=== PATIENT | male | born 1960 | race Caucasian/White ===

== ENCOUNTER → 2016-03-26 | Outpatient (CLI) | payer OTHER | END | disposition home or self-care (01) | LOC: C.LABMFLN 13:31 | PROVIDERS: ATTEND Family Medicine | DX: R30.0 Dysuria (principal) ==

== ENCOUNTER → 2016-04-30 | Outpatient (CLI) | payer OTHER | END | disposition home or self-care (01) | LOC: C.LABMFLN 09:39 | PROVIDERS: ATTEND Family Medicine | DX: N41.9 Inflammatory disease of prostate, unspecified (principal) ==

== ENCOUNTER → 2016-08-24 | Outpatient (CLI) | payer OTHER ==
[2016-08-24 18:19] LABS: BASO % 0.3 %; BASO ABS # 0.02 K/uL (0-0.2); COMPLETE YES; EOS % 3.1 %; HEMATOCRIT 47.6 % (42-52); IG% 0.3 %; LYMPH ABS # 2.56 K/uL (1.2-3.4); MEAN CELL VOLUME 92.6 fL (80-100); MEAN CORPUSCULAR HEMOGLOBIN 31.3 pg (25-34); MEAN CORPUSCULAR HGB CONC 33.8 g/dl (32-36); MEAN PLATELET VOLUME 9.8 fL (7.4-10.4); NEUT % 51.3 %; PLATELET COUNT 172 K/uL (130-400); RED BLOOD COUNT 5.14 M/uL (4.7-6.1); WHITE BLOOD COUNT 7.52 K/uL (4.8-10.8)
[2016-08-24 18:28] LABS: URINE APPEARANCE TURBID (CLEAR); URINE BILIRUBIN NEG (NEG); URINE COLOR DK YELLOW; URINE EPITHELIAL CELL AUTO 0-5 /lpf (0-5); URINE NITRITE NEG (NEG); URINE PH 5.5 (4.5-7.5); URINE SPECIFIC GRAVITY 1.031 (1.000-1.030); UROBILINOGEN NEG (NEG)
[2016-08-24 18:29] LABS: MANUAL MICROSCOPIC REQUIRED? NO; REVIEW REQ? NO
[2016-08-24 18:29] LABS: AMYLASE 31 U/L (25-115); BLOOD UREA NITROGEN 19 mg/dl (7-18); BUN/CREATININE RATIO 16.9 (10-20); CALCIUM 9.3 mg/dl (8.5-10.1); CARBON DIOXIDE 26 mmol/L (21-32); CHLORIDE 109 mmol/L (98-107); GLUCOSE 84 mg/dl (70-99); POTASSIUM 3.8 mmol/L (3.5-5.1); SODIUM 141 mmol/L (136-145)
[2016-08-24 18:32] LABS: ALB/GLOB RATIO 1.5 (0.9-2); ALKALINE PHOSPHATASE 92 U/L (45-117); ALT/SGPT 64 U/L (12-78); AST/SGOT 36 U/L (15-37)
== END | disposition home or self-care (01) ==
LOC: C.LABMFLN 16:59
PROVIDERS: ATTEND Family Medicine
DX: R10.11 Right upper quadrant pain (principal)

== ENCOUNTER → 2017-02-01 | Outpatient (CLI) | payer OTHER ==
[2017-02-01 18:27] LABS: BASO % 0.1 %; BASO ABS # 0.01 K/uL (0-0.2); COMPLETE YES; EOS % 1.1 %; HEMATOCRIT 49.3 % (42-52); IG% 0.3 %; LYMPH % 25.2 %; LYMPH ABS # 2.71 K/uL (1.2-3.4); MEAN CELL VOLUME 94.4 fL (80-100); MEAN CORPUSCULAR HGB CONC 34.9 g/dl (32-36); MEAN PLATELET VOLUME 10.3 fL (7.4-10.4); MONO % 8.4 %; NEUT % 64.9 %; PLATELET COUNT 201 K/uL (130-400); RED BLOOD COUNT 5.22 M/uL (4.7-6.1); WHITE BLOOD COUNT 10.77 K/uL (4.8-10.8)
[2017-02-01 18:36] LABS: ALT/SGPT 46 U/L (12-78); AMYLASE 65 U/L (25-115); AST/SGOT 22 U/L (15-37); BLOOD UREA NITROGEN 17 mg/dl (7-18); BUN/CREATININE RATIO 14.9 (10-20); CALCIUM 8.7 mg/dl (8.5-10.1); CARBON DIOXIDE 30 mmol/L (21-32); CHLORIDE 106 mmol/L (98-107); CREATININE 1.11 mg/dl (0.60-1.40); GLUCOSE 90 mg/dl (70-99); POTASSIUM 3.7 mmol/L (3.5-5.1); SODIUM 138 mmol/L (136-145)
[2017-02-01 18:39] LABS: ALB/GLOB RATIO 1.2 (0.9-2); ALKALINE PHOSPHATASE 81 U/L (45-117)
[2017-02-01 18:50] LABS: URINE APPEARANCE TURBID (CLEAR); URINE BILIRUBIN NEG (NEG); URINE COLOR DK YELLOW; URINE NITRITE NEG (NEG); URINE SPECIFIC GRAVITY 1.033 (1.000-1.030); UROBILINOGEN NEG (NEG); ZZUR CULT IF INDIC CLEAN CATCH NO
[2017-02-01 18:53] LABS: MANUAL MICROSCOPIC REQUIRED? NO; REVIEW REQ? NO
== END | disposition home or self-care (01) ==
LOC: C.LABMFLN 14:20
PROVIDERS: ATTEND Family Medicine
DX: R10.13 Epigastric pain (principal); R10.11 Right upper quadrant pain

== ENCOUNTER 2018-09-08 08:43 | Inpatient (IN) ==
--- NOTE | 2018-09-01 08:33 | Anesthesiology Consultation ---
Date of Service September 01, 2018 Assessment & Plan (1) Encounter for pre-operative examination: Chart Review Chart Review: Acceptable Risk for Surgery and Patient seen in Pre Admission Testing Teaching & Discussion Instructed NPO after midnight before surgery, except medications with 15 cc of water. Medication instructions provided according to the PAT guidelines. History Surgery Operation Date: 09/08/18 10:25 Proposed Procedures p L5-S1 Decompression and Fusion with Spinal Cord Monitoring - Rosales Kaur, Height/Weight Height: 5 ft 10 in Weight: 110.1 kg Allergies Allergy/AdvReac Type Severity Reaction Status Date / Time azithromycin Allergy Unknown Unknown Verified 08/30/18 10:49 levofloxacin AdvReac Unknown Unknown Verified 08/30/18 10:49 Medications Home Medications Medication Instructions Recorded Confirmed Last Taken albuterol sulfate HFA 90 2 puffs INHALATION Q4H PRN #18 gm 08/29/18 08/30/18 Unknown mcg/actuation aerosol inhaler cetirizine 10 mg tablet 10 mg PO HS #90 tab 08/29/18 08/30/18 Unknown lovastatin 20 mg tablet 20 mg PO HS #90 tab 08/29/18 08/30/18 Unknown fluticasone propionate 2 sprays INTRANASAL DAILY PRN 08/30/18 08/30/18 Unknown ibuprofen [Advil] 400 - 600 mg PO QID PRN 08/30/18 08/30/18 Unknown zolpidem 5 mg PO HS PRN 08/30/18 08/30/18 Unknown Past Medical History Medical History Allergic rhinitis Alopecia areata BPPV (benign paroxysmal positional vertigo) HX-COUPLE YRS AGO Cervicalgia Chronic back pain Chronic sinusitis Hypercholesterolemia Insomnia Internal hemorrhoids Lumbar radiculopathy Mild intermittent asthma Using albuterol seasonally, rarely, exacerbated by allergens and heat. Paroxysmal supraventricular tachycardia 10 YRS AGO. S/P ABLATION, no longer followed by cardiology. Tobacco use GERD (gastroesophageal reflux disease) HX Exercise / Class Metabolic Activity II 4-5 Yardwork/Stairs/Walk up hill (Denies CP or SOB with stairs) Past Surgical History Surgical History Encounter for screening colonoscopy History of decompression of median nerve R/L CTR History of esophagogastroduodenoscopy Past Anesthesia History No Hx of Anesthesia Complications and No Family Hx of Anesthesia Complications History of PONV No Hx of PONV and No Hx of Motion Sickness Social History Smoking Status: Light tobacco smoker tobacco type: cigars Smoking cigarettes per day: OCC CIGARS ON WEEKENDS Do You Dip or Chew Tobacco: No Hx Alcohol Use: Yes Alcohol type: beer and wine alcohol intake frequency: a few times a week Hx Substance Use: No Review of Systems Pt denies any recent chest pain, shortness of breath, palpitations, cough, fever or URI. Physical Exam Vital Signs BP: 121/83 P: 57bpm SPO2: 97% RA T: 97.8 F R: 12 ENMT Mouth: + dental restorations (several crowns); no chipped teeth and no loose teeth Thyromental Distance: < 3.5 Finger Breadths (3) Mallampati Class: I Neck normal visual inspection and + limited neck extension (very mild, some pain with full extension) Respiratory normal respiratory effort Auscultation: lungs clear to auscultation bilaterally Cardiovascular Rate/Rhythm: regular rhythm and + bradycardic Heart Sounds: no murmur Vessels: no carotid bruit Extremities: no edema Testing Laboratory Results 09/01/18 08:45 09/01/18 08:45 PT 10.1 Seconds (9.0-12.0) 09/01/18 08:45 INR 1.0 (0.9-1.1) 09/01/18 08:45 APTT 25.9 Seconds (21.0-31.0) 09/01/18 08:45 Urine Color Yellow 09/01/18 08:45 Urine Appearance Clear (Clear) 09/01/18 08:45 Urine pH 5.5 (4.5-7.5) 09/01/18 08:45 Ur Specific [place] 1.025 (1.000-1.030) 09/01/18 08:45 Urine Protein Negative (Negative) 09/01/18 08:45 Urine Glucose (UA) Negative (Negative) 09/01/18 08:45 Urine Ketones Negative (Negative) 09/01/18 08:45 Urine Nitrite Negative (Negative) 09/01/18 08:45 Ur Leukocyte Esterase Negative (Negative) 09/01/18 08:45 Blood Type A Positive 09/01/18 08:45 Antibody Screen NEGATIVE 09/01/18 08:45 Electrocardiogram Date: 09/01/18 Findings: + SB @ (53) Chest X-Ray Date: 09/01/18 Findings: + NAD
--- NOTE | 2018-09-01 08:39 | PAT Medication Instructions ---
Medication Instructions Date of Service September 01, 2018 Home Medications Medication Instructions Recorded albuterol sulfate HFA 90 2 puffs INHALATION Q4H PRN #18 gm 08/29/18 mcg/actuation aerosol inhaler cetirizine 10 mg tablet 10 mg PO HS #90 tab 08/29/18 lovastatin 20 mg tablet 20 mg PO HS #90 tab 08/29/18 albuterol sulfate HFA 90 mcg/actuation aerosol inhaler 2 puffs INHALATION Q4H PRN cetirizine 10 mg tablet 10 mg PO HS lovastatin 20 mg tablet 20 mg PO HS fluticasone propionate 2 sprays INTRANASAL DAILY PRN ibuprofen [Advil] 400 - 600 mg PO QID PRN zolpidem 5 mg PO HS PRN ASK your surgeon for instructions ibuprofen [Advil] 400 - 600 mg PO QID PRN Take morning of surgery OTHERWISE NOTHING TO EAT OR DRINK AFTER MIDNIGHT: albuterol sulfate HFA 90 mcg/actuation aerosol inhaler 2 puffs INHALATION Q4H PRN (if needed, and bring with you to the hospital) fluticasone propionate 2 sprays INTRANASAL DAILY PRN (if needed) Take evening before surgery albuterol sulfate HFA 90 mcg/actuation aerosol inhaler 2 puffs INHALATION Q4H PRN (if needed) cetirizine 10 mg tablet 10 mg PO HS lovastatin 20 mg tablet 20 mg PO HS fluticasone propionate 2 sprays INTRANASAL DAILY PRN zolpidem 5 mg PO HS PRN Other Notes If you have any questions please call us at [phone] or [phone] or [phone] or [phone]
--- NOTE | 2018-09-01 09:29 | XRay Report ---
XR chest Pre-admission PA/Lat CLINICAL HISTORY: Preoperative evaluation. COMPARISON STUDY: No previous studies for comparison. FINDINGS: Lung volumes are normal. Lungs are clear. There is no pneumothorax or pleural effusion. Car diac size is normal. Mediastinal contours are normal. There is no evidence for pulmonary edema. IMPRESSION: No acute cardiopulmonary findings. Electronically signed by: Dominic Lucero M.D. 09/01/2018 9:28 AM
[2018-09-01 11:20] LABS: Basophils # (auto) 0.02 K/uL (0-0.2); Basophils % (auto) 0.3 %; Eosinophils # (auto) 0.28 K/uL (0-0.5); Eosinophils % (auto) 3.7 %; Hematocrit (blood only) 50.9 % (42-52); Hemoglobin 17.9 g/dL (14.0-18.0); Immature Granulocytes # (auto) 0.01 K/uL (0.00-0.02); Immature Granulocytes % (auto) 0.1 %; Lymphocytes # (auto) 2.37 K/uL (1.2-3.4); Lymphocytes % (auto) 31.6 %; Mean Corpuscular Hgb Conc 35.2 g/dL (32-36); Mean Corpuscular Volume 95.5 fL (80-100); Mean Platelet Volume 10.4 fL (7.4-10.4); Monocytes # (auto) 0.68 K/uL (0.11-0.59); Monocytes % (auto) 9.1 %; Neutrophils # (auto) 4.15 K/uL (1.4-6.5); Neutrophils % (auto) 55.2 %; Platelet Count 189 K/uL (130-400); RDW Coefficient of Variation 13.3 % (11.5-14.5); RDW Standard Deviation 46.4 fL (36.4-46.3); Red Blood Count 5.33 M/uL (4.7-6.1); White Blood Count 7.51 K/uL (4.8-10.8)
[2018-09-01 11:21] LABS: Appearance Urine Clear (Clear); Bilirubin Urine Negative (Negative); Blood Urine Negative (Negative); Color Urine Yellow; Glucose Urine UA Negative (Negative); Ketones Urine Negative (Negative); Leukocyte Esterase Urine Negative (Negative); Nitrite Urine Negative (Negative); Protein Urine Negative (Negative); Specific Gravity Urine 1.025 (1.000-1.030); Urobilinogen Urine Negative (Negative); pH Urine 5.5 (4.5-7.5)
[2018-09-01 11:29] LABS: BUN Creatinine Ratio 14.8 (10-20); Calcium 8.8 mg/dl (8.5-10.1); Creatinine Clr Calc Pharmacy 92.3 ml/min; Est GFR (African American) 85.6; Est GFR (Non-African American) 73.8; Potassium 4.2 mmol/L (3.5-5.1)
[2018-09-01 11:31] LABS: Partial Thromboplastin Time 25.9 Seconds (21.0-31.0); Prothrombin Time 10.1 Seconds (9.0-12.0)
[~2018-09-08 08:43] MED LIST: CEFAZOLIN 2000MG 2,000 MG/15 ML SYR IV SCH; HYDROmorphone INJ 2 MG/ML SYR/VIAL ONE; LACTATED RINGER'S 1,000 ML IV SCH; LIDOCAINE HCL 2% 2 ML VIAL/AMP(20MG/ML) INFIL ONE; MIDAZOLAM HCL 1 MG/ML 2ML VIAL ONE; PROPOFOL IV EMULSION 10 MG/ML 20 ML VIAL IV ONE; ROCURONIUM BROMIDE 10 MG/ML 5 ML VIAL ONE; fentaNYL citrate 100 MCG/2 ML VIAL ONE
[2018-09-08] MEDS ORDERED: MoRPHine SULFATE 10 MG/ML CARP/VIAL IV PRN (09:42)
[2018-09-08] MEDS ORDERED: ATROPINE SULFATE 0.1 MG/ML 10ML SYR IV PRN (09:42)
[2018-09-08] MEDS ORDERED: ONDANSETRON INJ 2 MG/ML 2 ML VIAL IV PRN ×2 (09:42→13:52)
[2018-09-08] MEDS ORDERED: ePHEDrine sulfate 50 MG/ML AMP IV PRN (09:42)
--- NOTE | 2018-09-08 10:08 | History & Physical Bridge Note ---
Date of Service September 08, 2018 History & Physical Bridge Note I have examined the patient, reviewed the History & Physical and in the interval since the performance of the History & Physical I have noted the following changes of clinical significance: no changes noted
--- NOTE | 2018-09-08 10:09 | History & Physical Report ---
Date of Service September 08, 2018 Assessment & Plan (1) Spinal stenosis, lumbar region with neurogenic claudication: L5-S1 decompression and fusion Present on Admission?: Yes History of Present Illness Chief Complaint: Back and leg pain Primary Care Provider: Davis Chaparro MD This is a 58-year-old male who presents with chronic persistent back and leg pain after failing extensive course of nonoperative care is here for surgical intervention. Allergies Allergy/AdvReac Type Severity Reaction Status Date / Time azithromycin Allergy Unknown Unknown Verified 09/08/18 09:13 levofloxacin AdvReac Unknown Unknown Verified 09/08/18 09:13 Home Medications Home Medications Medication Instructions Recorded Confirmed Type albuterol sulfate HFA 90 2 puffs INHALATION Q4H PRN #18 gm 08/29/18 09/08/18 Rx mcg/actuation aerosol inhaler cetirizine 10 mg tablet 10 mg PO HS #90 tab 08/29/18 09/08/18 Rx lovastatin 20 mg tablet 20 mg PO HS #90 tab 08/29/18 09/08/18 Rx fluticasone propionate 2 sprays INTRANASAL DAILY PRN 08/30/18 09/08/18 History ibuprofen [Advil] 400 - 600 mg PO QID PRN 08/30/18 09/08/18 History zolpidem 5 mg PO HS PRN 08/30/18 09/08/18 History Past Med/Surg History Medical History Allergic rhinitis Alopecia areata BPPV (benign paroxysmal positional vertigo) HX-COUPLE YRS AGO Cervicalgia Chronic back pain Chronic sinusitis Hypercholesterolemia Insomnia Internal hemorrhoids Lumbar radiculopathy Mild intermittent asthma Using albuterol seasonally, rarely, exacerbated by allergens and heat. Paroxysmal supraventricular tachycardia 10 YRS AGO. S/P ABLATION, no longer followed by cardiology. Tobacco use GERD (gastroesophageal reflux disease) HX Social History Preferred Language: Czech Communication Ability: Effective Airline Reservation Agent Required: No Beliefs That Will Affect Care: None Current Living Situation: Spouse and Family Other Information That Helps Us Care for You: No Feels Safe at Home: Yes Safety Concerns: Feels Safe At This Time Smoking Status: Light tobacco smoker Tobacco Type: cigars Cigarettes Per Day: OCC CIGARS ON WEEKENDS Do You Dip or Chew Tobacco: No Second Hand Exposure: No Hx Alcohol Use: Yes Alcohol type: beer and wine Hx Substance Use: No Physical Exam Physical Exam: Patient is alert and oriented neurologically intact. Results & Data Vital Signs (Past 12 Hours) Vital Signs Temp Pulse Resp BP Pulse Ox 09/08/18 09:18 36.9 C 73 18 121/89 96
[2018-09-08] MEDS ORDERED: BUPIVACAINE/EPINEPHRINE 0.5% MPF 1:200,000 30 ML VIAL ONE (10:12)
[2018-09-08] MEDS ORDERED: HYDROmorphone INJ 2 MG/ML SYR/VIAL ONE ×2 (10:12→11:33)
[2018-09-08] MEDS ORDERED: BACITRACIN INJ 50,000 UNIT VIAL ONE (10:12)
[2018-09-08] MEDS ORDERED: fentaNYL citrate 100 MCG/2 ML VIAL ONE ×4 (10:37→11:42)
[2018-09-08] MEDS ORDERED: FLOSEAL HEMOSTATIC MATRIX 10ML TOP ONE (11:18)
[2018-09-08] MEDS ORDERED: PROPOFOL IV EMULSION 10 MG/ML 20 ML VIAL IV ONE (11:43)
[2018-09-08] MEDS ORDERED: GLYCOPYRROLATE 0.2 MG/ML VIAL ONE (11:43)
[2018-09-08] MEDS ORDERED: PHENYLEPHRINE 100MCG/ML 5ML SYR ONE (11:43)
[2018-09-08] MEDS ORDERED: NEOSTIGMINE METHYLSULFATE 1 MG/ML 10ML VIAL ONE (11:43)
[2018-09-08] MEDS ORDERED: ESMOLOL HCL INJ 10 MG/ML 10ML VIAL IV ONE (11:43)
[2018-09-08] MEDS ORDERED: ONDANSETRON INJ 2 MG/ML 2 ML VIAL ONE (11:43)
[2018-09-08] MEDS ORDERED: ePHEDrine sulfate 50 MG/ML SYR ONE (11:43)
--- NOTE | 2018-09-08 12:17 | Fluoroscopy Report ---
FL lumbar spine 2-3V CLINICAL HISTORY: L5-S1 DECOMP/FUSIONpostoperative COMPARISON STUDY: None FLUOROSCOPY TIME: 25 seconds NUMBER OF FLUOROSCOPIC IMAGES: 2 FINDINGS: Findings consistent with a posterior laminectomy and fusion at L5-S1. There is a grade 1 an terolisthesis of L5 on S1. There is a disc spacer present at the L5-S1 disc level. IMPRESSION: Image intensifier utilization intraoperatively for an L5-S1 laminectomy and fusion. The above report was generated using voice recognition software. It may contain grammatical, syntax or spelling errors. Electronically signed by: Cezar Avalos M.D. 09/08/2018 12:16 PM
--- NOTE | 2018-09-08 12:26 | Operative Report ---
Post Operative Report Pre & Post Diagnosis Operation Date: 09/08/18 10:25 Pre-Op Diagnosis: Spinal stenosis, lumbar region with neurogenic claudication Spondylolisthesis L5-S1 Post-Op Diagnosis: Same Procedure Operation Date: 09/08/18 10:25 Actual Procedures #1 lumbar decompression bilateral medial facetectomies foraminotomies L4-5 L5-S1 per #2 posterior spinal fusion L5-S1 per #3 placement posterior instrumentation L5-S1 per #4 interbody fusion L5-S1 per #5 placement of titanium 11 x 26 mm cage L5-S1. #6 placement of local autograft in the posterior lateral gutters per #7 placement infuse collagen sponge, master graft in the posterior lateral gutters and ostial amp and interbody space. Surgeon Rosales Kaur, DO Auto Transmission Technician None Estimated Blood Loss 275 Findings See Below Patient is 5 foot 10 inches tall weighing over 108 kg with a BMI in excess of 34. Patient's body habitus added significant technical difficulty throughout the procedure adding 50% increase in operative time. He did require her deepest retractors and longest instruments to perform the procedure. Specimens None Indications This is a 58-year-old male presents with above-mentioned diagnosis after failing extensive course of nonoperative care like to undergo the above-mentioned procedure. Description of Procedure Patient was met with identified and informed consent obtained. He was then taken to the operative suite underwent intubation placed in a prone position on the Logan table on top of the Jim frame. All bony prominences well-padded eyes inspected to ensure no external pressure placed upon the peer at this point the lumbar spine was prepped and draped in the normal sterile fashion. Sharp dissection with the assistance of Bovie cautery was performed down to and exposing the lamina and transverse process of L5 and sacral ala bilaterally. Obvious pars defect was appreciated bilaterally. A complete laminectomy of L5 partial laminectomy of L4 was performed. This included bilateral medial facetectomies foraminotomies to address all neural encroachment. Pedicle screws were then placed in L5 and S1 levels bilaterally with assistance of fluoroscopy and the appropriate size janie placed. By way of a transforaminal approach on the left complete discectomy was performed in plate graded to subcortical mean bone and 11 x 26 mm titanium cage filled with ostium bone graft tapped in position. Rods were then locked in final position bilaterally. The transverse processes of L5 and sacral ala bur to subcortical bleeding bone. Infuse collagen sponge master graft local autograft was then placed in the posterior lateral gutters. 15 round FLACO drain inserted. Incision was then closed with 1 Vicryl in the fascia 2-0 Vicryl subcutaneously and 4-0 Monocryl for final skin closure. Lastly Steri-Strips sterile dressing placed. Patient will continue PACU stable condition. Please note spinal cord monitoring was utilized throughout the procedure no changes noted. I attest to the content of the Intraoperative Record and any orders documented therein. Any exceptions are noted below.
[2018-09-08] MEDS: fentaNYL citrate 100 MCG/2 ML VIAL IV PRN ×2 (12:47→12:52)
--- NOTE | 2018-09-08 13:09 | Anesthesiology Progress Note ---
Date of Service September 08, 2018 Anesthesia Post Procedure Vital Signs Vital Signs: Temp Pulse Pulse Resp BP Pulse Ox 09/08/18 13:05 76 17 127/86 98 09/08/18 12:55 81 16 120/88 98 09/08/18 12:45 81 19 146/94 H 98 09/08/18 12:35 97.3 F L 73 10 L 142/93 H 92 09/08/18 09:18 98.4 F 73 18 121/89 96 Pain Intensity Medial Back: Pain Intensity: 2 Transfer of Care Handoff Completed per policy Notes Mental Status: alert / awake / arousable and participated in evaluation Patient Amnestic to Procedure: Yes Nausea / Vomiting: adequately controlled Pain: adequately controlled Airway Patency, RR, SpO2: stable & adequate BP & HR: stable & adequate Hydration State: stable & adequate Anesthetic Complications: no major complications apparent and Pt Satisfied with anesthetic care
[2018-09-08] MEDS ORDERED: LARYING-O-JET KIT (LTA) ONE (13:22)
[2018-09-08] MEDS ORDERED: ACETAMINOPHEN 500 MG TAB PO PRN (13:52)
[2018-09-08] MEDS ORDERED: ONDANSETRON 4 MG TAB PO PRN (13:52)
[2018-09-08] MEDS ORDERED: ALUMINUM/MAGNESIUM SUSP 30 ML UDC PO PRN (13:52)
[2018-09-08] MEDS ORDERED: BISACODYL 10 MG SUPP PR PRN (13:52)
[2018-09-08] MEDS ORDERED: DO NOT ADMINISTER FLU VACCINE PRN (13:52)
[2018-09-08] MEDS ORDERED: MAGNESIUM HYDROXIDE SUSP 30 ML UDC PO PRN (13:52)
[2018-09-08] MEDS ORDERED: ZOLPIDEM TARTRATE 10 MG TAB PO PRN (13:52)
[2018-09-08] MEDS ORDERED: SOD PHOSPHATE/SOD BIPHOSPHATE ENEMA 132 ML BTL PR PRN (13:52)
[2018-09-08] MEDS ORDERED: PROMETHAZINE HCL 12.5 MG in SODIUM CHLORIDE 0.9% 50 ML IV PRN (13:52)
[2018-09-08] MEDS ORDERED: FAMOTIDINE 20 MG TAB PO PRN (13:52)
[2018-09-08] MEDS ORDERED: DO NOT ADMINISTER PNEUMOCOCCAL VACCINE PRN (13:52)
[2018-09-08] MEDS ORDERED: LORazepam 0.5 MG/1 ML VIAL IV PRN (13:52)
[2018-09-08] MEDS ORDERED: FLUTICASONE PROPIONATE NA SPR 16 GM BTL PRN (13:52)
[2018-09-08] MEDS ORDERED: HYDROmorphone INJ 0.5 MG/0.5 ML SYR IV PRN (13:52)
[2018-09-08] MEDS ORDERED: ALBUTEROL HFA 8 GM INHALER INH PRN (13:52)
[2018-09-08] MEDS ORDERED: LORazepam 0.5 MG TAB PO PRN (13:52)
[2018-09-08] MEDS ORDERED: ACETAMINOPHEN 1,000 MG/100 ML VIAL IV PRN (13:52)
[2018-09-08] MEDS ORDERED: METOCLOPRAMIDE HCL INJ 5 MG/ML 2 ML VIAL IV PRN (13:52)
[2018-09-08] MEDS: LACTATED RINGER'S 1,000 ML IV SCH ×2 (14:42→18:26)
[2018-09-08] MEDS: KETOROLAC 30 MG/ML VIAL IV SCH ×2 (14:43→21:00)
[2018-09-08] MEDS: OXYCODONE HCL IR 5 MG TAB (IMMEDIATE RELEASE) PO PRN ×2 (14:45→18:46)
[2018-09-08] MEDS: CEFAZOLIN 2000MG 2,000 MG/15 ML SYR IV SCH (18:30)
[2018-09-08] MEDS: DOCUSATE SODIUM/SENNA 50/8.6MG TAB PO SCH (21:01)
[2018-09-08] MEDS: LOVASTATIN 20 MG TAB PO SCH (21:01)
[2018-09-08] MEDS: CETIRIZINE HCL 10 MG TABLET PO SCH ×2 (21:01→21:05)
[2018-09-09] MEDS: KETOROLAC 30 MG/ML VIAL IV SCH ×2 (01:21→07:58)
[2018-09-09] MEDS: CEFAZOLIN 2000MG 2,000 MG/15 ML SYR IV SCH (01:27)
[2018-09-09] MEDS: POLYETHYLENE (MIRALAX) 17 GM PACK PO SCH ×4 (05:45→23:26)
[2018-09-09 07:08] LABS: Basophils # (auto) 0.01 K/uL (0-0.2); Hematocrit (blood only) 42.8 % (42-52); Hemoglobin 14.8 g/dL (14.0-18.0); Immature Granulocytes # (auto) 0.08 K/uL (0.00-0.02); Immature Granulocytes % (auto) 0.4 %; Lymphocytes # (auto) 1.44 K/uL (1.2-3.4); Lymphocytes % (auto) 6.9 %; Mean Corpuscular Hgb Conc 34.6 g/dL (32-36); Mean Corpuscular Volume 95.1 fL (80-100); Mean Platelet Volume 10.2 fL (7.4-10.4); Monocytes # (auto) 1.05 K/uL (0.11-0.59); Neutrophils # (auto) 18.33 K/uL (1.4-6.5); Neutrophils % (auto) 87.7 %; Platelet Count 154 K/uL (130-400); RDW Coefficient of Variation 13.5 % (11.5-14.5); RDW Standard Deviation 46.9 fL (36.4-46.3); White Blood Count 20.91 K/uL (4.8-10.8)
[2018-09-09 07:44] LABS: BUN Creatinine Ratio 16.3 (10-20); Calcium 8.1 mg/dl (8.5-10.1); Creatinine Clr Calc Pharmacy 80.8 ml/min; Est GFR (African American) 73.4; Est GFR (Non-African American) 63.3; Potassium 4.2 mmol/L (3.5-5.1)
[2018-09-09] MEDS: OXYCODONE HCL IR 5 MG TAB (IMMEDIATE RELEASE) PO PRN ×3 (08:40→21:13)
--- NOTE | 2018-09-09 09:58 | Orthopedic Progress Note ---
Date of Service September 09, 2018 Assessment & Plan (1) Spinal stenosis, lumbar region with neurogenic claudication: This time will initiate physical therapy monitor his FLACO output anticipate discharge home Tuesday or Tuesday. Present on Admission?: Yes Subjective Patient's back pain is controlled leg symptoms improved. Physical Exam Physical Exam: Patient is good strength testing appears comfortable. Results & Data Vital Signs (Past 12 Hours) Vital Signs Temp Pulse Resp BP Pulse Ox 09/09/18 07:19 36.8 C 69 20 95/58 L 94 09/09/18 03:43 37.0 C 67 18 105/65 92 09/08/18 23:04 36.9 C 68 17 116/74 91
[2018-09-09] MEDS: TRAMADOL HCL 50 MG TABLET PO PRN ×2 (16:06→23:58)
[2018-09-09] MEDS: LOVASTATIN 20 MG TAB PO SCH (21:06)
[2018-09-09] MEDS: DOCUSATE SODIUM/SENNA 50/8.6MG TAB PO SCH (21:07)
[2018-09-09] MEDS: CETIRIZINE HCL 10 MG TABLET PO SCH (21:07)
[2018-09-10] MEDS: POLYETHYLENE (MIRALAX) 17 GM PACK PO SCH ×2 (05:47→13:52)
[2018-09-10] MEDS: TRAMADOL HCL 50 MG TABLET PO PRN (06:17)
--- NOTE | 2018-09-10 08:33 | Orthopedic Progress Note ---
Date of Service September 10, 2018 Assessment & Plan (1) Spinal stenosis, lumbar region with neurogenic claudication: Overall patient is doing well. He would like to go home today. We will DC FLACO drain prior to discharge. Teds are DVT prophylaxis upon discharge. All questions have been reviewed in detail. Supervising Physician Co-Signing Physician Notes Dr. Rosales Kaur Subjective Patient is postoperative day 2 lumbar decompression fusion. Is doing quite well. Has some numbness in his left foot but has resolved left lower extremity pain. He is ambling over 500 feet after yesterday in physical therapy. Back pain is controlled. He is passing flatus. FLACO drain output last shift was 10 cc. Review of Systems Review of Systems: All systems reviewed & are unremarkable except as noted in HPI & below Physical Exam Physical Exam: He is resting in bed. Alert and oriented x3. No obvious distress. Lower extreme is are neurovascular intact. Calf soft nontender bilateral extremities. Strength is intact bilateral lower extremities. Lumbar dressing is clean dry and intact. Results & Data Vital Signs (Past 12 Hours) Vital Signs Temp Pulse Resp BP BP Pulse Ox 09/10/18 06:25 36.9 C 69 18 116/72 93 09/09/18 23:27 36.8 C 65 18 117/74 93
--- NOTE | 2018-09-10 08:36 | Discharge Summary ---
Date of Service September 10, 2018 Admission HPI Per Admitting Provider This is a 58-year-old male who presents with chronic persistent back and leg pain after failing extensive course of nonoperative care is here for surgical intervention. Admission Exam (Per Admitting) Constitutional WD/WN, vitals as above Eyes normal visual gar by confrontation ENMT external ear and nose normal, oropharynx normal Neck normal visual inspection Respiratory normal respiratory effort Cardiovascular RRR, no murmur, no edema Gastrointestinal (Abdomen) Inspection/Auscultation: abdomen normal to inspection Musculoskeletal no cyanosis or clubbing, extremities motor strength 5/5 Skin no rashes, warm and dry Neurologic patellar DTR's 2+ bilat, sensation intact normal touch/pain/proprioception and CN's II-XI intact bilaterally Psychiatric A+Ox3, euthymic affect Discharge Data Consultations 09/08/18 13:52 Consult Case Management - Discharge Planning Routine Procedures Performed Operation Date: 09/08/18 10:25 Actual Procedures p L5-S1 Decompression and Fusion with Spinal Cord Monitoring, Application of Bone Morphogenetic Protein and Allograft, Placement of Interbody at L5-S1(Not Applicable) - Rosales Kaur, Hospital Course (1) Spinal stenosis, lumbar region with neurogenic claudication: Overall patient is doing well. He would like to go home today. We will DC FLACO drain prior to discharge. Teds are DVT prophylaxis upon discharge. All questions have been reviewed in detail. Patient had an uncomplicated hospital course. Pain is greatly improved. Passing flatus. Making great progress in physical therapy and ambulating in the hallways. He is discharged home on postoperative day 2 Discharge Instructions ACTIVITY RECOMMENDATIONS: SELF CARE INSTRUCTIONS AFTER THORACIC/LUMBAR FUSIONS 1. You may walk to your tolerance. It is good exercise for your legs and back. Expect some back and intermittent leg aches and pains. 2. You may perform "counter-top" level activities (make a sandwich, los with a project, etc.). 3. No bending or lifting of more than 10 pounds or back twisting of any nature (roll like a log when turning in bed). 4. You may ride in a car for 20-30 minutes at a time. No driving until after your first visit with your doctor. 5. Frequent changes of position and restricting sitting to 30 minutes at a time will help limit the amount of back spasms and stiffness you may experience. 6. You may discontinue the use of ambulatory aids (cane, crutches, etc.) once your strength and confidence allow. 7. You may heavy line technician the shower and let water strike your incision when you arrive home at least once daily. Do not take a tub bath, sit in a hot tub or go into a swimming pool until after your first recheck in the office. SPECIAL CARE INSTRUCTIONS: VERY IMPORTANT TO READ AND REVIEW A. Your surgical incision has been closed with a cosmetic suture under the skin that will dissolve in about 6 weeks. In 14 days, you can use a pair of clean scissors and cut the suture that is left outside of the skin at the ends of your incision. 1. The small skin tapes can be removed 7 days after surgery if they have not fallen off by that point. 2. You may keep the wound open to air as much as possible to promote healing after post-op day number 5 unless told otherwise by your doctor. 3. If you think the wound looks like it is becoming infected (redness or worsening drainage) and/or you are experiencing fever, chill or worsening back pain and muscle spasms, contact the office so that we may evaluate you as soon as possible. B. Complications are uncommon, but please contact us if you have any signs or symptoms of: 1. wound infection (fever higher than 102.5 degrees F, redness, separation of wound, drainage, or increasing pain from the incision) 2. blood clots in legs (pain, swelling, redness and warmth in legs) 3. urinary tract infection (fever higher than 102.5 degrees F, burning upon urination or increased frequency of urination) 4. nerve problems (inability to walk on your toes or heels, numbness, loss of bowel or bladder control) 5. any other symptoms that concern you C. Please call the office at if you have any concerns or questions about your operation or recovery. D. No smoking! Smoking drastically decreases the chance of a solid fusion. E. Do not take any anti-inflammatory medications (Indocin, Advil, Motrin, Aspirin, Naprosyn, etc.) as these may inhibit the chance of a solid fusion. Tylenol is okay to take for pain. MANAGING PAIN AFTER SPINAL SURGERY 1. Narcotic medication is intended for short-term use and will be provided for surgical pain. Surgical pain usually lasts for a period of 4-6 weeks. Narcotic medication includes Percocet, Vicodin, Darvocet, Tylenol #3 or Lortab. 2. Longer-term pain is more appropriately treated with non-narcotic medication such as Tylenol ES. 3. Muscle spasm is not appropriately treated with narcotics. Muscle relaxers such as Soma, Flexeril or Skelaxin can be used along with Tylenol ES. 4. Remember that we all live with some "aches and pains". This is not unusual or uncommon after an injury or as we get older. a. Back pain is expected and may include muscle spasms for 4 to 6 weeks after surgery. The pain should gradually improve. If the pain worsens for no apparent reason, please contact the office. b. Intermittent leg pain may also be experienced and should not be concerned about unless it worsens for no apparent reason. If so, please contact the office. 5. We will provide appropriate medication within the normal guidelines of their prescribed use. We will also be very cautious and aware of potential abuse and extended duration of patients' medication needs. a. Pain medications are for your comfort and to assist with sleep and rest so that the tissue can heal. They are not provided in order to return to normal activity and should not be used through the day. To do so or worsening pain at night can result from ongoing tissue damage and development of tolerance to the prescribed medicine. 6. Please allow 2-3 days to process refills. Prescriptions will not be mailed but must be picked up at the office. FOLLOW UP VISIT: Keep your scheduled follow-up appointment. Any questions, please call the office at . Supervising Physician Co-Signing Physician Notes Dr. Rosales Kaur
[2018-09-10] MEDS: OXYCODONE HCL IR 5 MG TAB (IMMEDIATE RELEASE) PO PRN ×2 (08:57→15:06)
== END 2018-09-10 15:23 | disposition home or self-care (01) | DRG 455 ==
LOC: ASU 08:43 → 3E 12:30